=== PATIENT | female | born 1990 | race Caucasian/White ===

== ENCOUNTER → 2016-03-30 | Outpatient (CLI) | payer OTHER ==
--- NOTE | 2016-03-30 16:00 | DIAGNOSTIC IMAGING REPORT ---
RIGHT HAND MIN 3 VIEWS ROUTINE CLINICAL HISTORY: Fall, subsequent ENCOUNTER W19.XXXD Right trauma. Pain. COMPARISON: 06/16/2009 DISCUSSION: The bones and joint spaces appear intact. There is no evidence of fracture, dislocation or bony disease. Mild soft tissue edema. Linear lucency seen obliquely base middle phalanx fifth finger. This was present previously and is a nonacute nutrient canal. No abnormal periosteal reaction IMPRESSION: Mild soft tissue edema. No acute bony abnormality. Electronically signed by: Nadeem Blevins M.D. 03/30/2016 3:58 PM
== END | disposition home or self-care (01) ==
LOC: C.RAD 15:41
PROVIDERS: ATTEND Family Medicine
DX: M79.641 Pain in right hand (principal); W19.XXXD Unspecified fall, subsequent encounter

== ENCOUNTER → 2016-10-25 | Outpatient (CLI) | payer OTHER | END | disposition home or self-care (01) | LOC: C.PAPS 14:51 | PROVIDERS: ATTEND Obstetrics & Gynecology | DX: Z12.4 Encounter for screening for malignant neoplasm of cervix (principal); R87.612 Low grade squamous intraepithelial lesion on cytologic smear of cervix (LGSIL); Z87.42 Personal history of other diseases of the female genital tract ==

== ENCOUNTER → 2016-11-26 | Outpatient (CLI) | payer OTHER | END | disposition home or self-care (01) | LOC: C.PAPS 15:13 | PROVIDERS: ATTEND Obstetrics & Gynecology | DX: R87.612 Low grade squamous intraepithelial lesion on cytologic smear of cervix (LGSIL) (principal) ==

== ENCOUNTER → 2016-11-26 | Outpatient (CLI) | payer OTHER | END | disposition home or self-care (01) | LOC: C.PATHSPEC 14:43 | PROVIDERS: ATTEND Obstetrics & Gynecology | DX: N87.9 Dysplasia of cervix uteri, unspecified (principal) ==